=== PATIENT | female | born 1950 | race Caucasian/White ===

== ENCOUNTER → 2019-10-05 | Outpatient (CLI) | payer BC, MEDICARE, OTHER | END | disposition home or self-care (01) | LOC: RAD 11:34 | DX: S82.891D Other fracture of right lower leg, subsequent encounter for closed fracture with routine healing (principal); X58.XXXD Exposure to other specified factors, subsequent encounter ==

== ENCOUNTER 2019-11-25 13:32 | Emergency (ER) | payer BC, MEDICARE, OTHER ==
[~2019-11-25] VITALS: Ht 152.4 cm; Wt 56.7 kg
[2019-11-25] MEDS ORDERED: CLEOCIN HCL150 MG PO (15:07)
== END 2019-11-25 15:30 | disposition left against medical advice (07) ==
LOC: ED 13:32
DX: K04.7 Periapical abscess without sinus (principal); Z88.8 Allergy status to other drugs, medicaments and biological substances

== ENCOUNTER 2021-12-24 12:02 | Emergency (ER) | payer OTHER, MEDICARE ==
[~2021-12-24] VITALS: Ht 152.4 cm; Wt 59.0 kg
[~2021-12-24 12:02] MED LIST: CLEOCIN HCL150 MG PO
[2021-12-24 13:14] LABS: BASO % 0.2 % (0.0-1.0); EOS % 0.2 % (1.0-4.0); HEMATOCRIT 35.6 % (37.0-47.0); LYMPH % 7.5 % (27.0-41.0); MEAN CELL VOLUME 90.8 fl (81.0-99.0); MEAN CORPUSCULAR HGB 29.8 pg (27.0-31.0); MEAN CORPUSCULAR HGB CONC 32.9 g/dl (33.0-37.0); MEAN PLATELET VOLUME 9.4 fl (9.6-12.3); MONO # 0.7 10*3/uL (0.1-1.0); MONO % 5.2 % (3.0-9.0); NEUT # 11.4 10*3/uL (2.3-7.9); NEUT % 86.6 % (47.0-73.0); PLATELET COUNT AUTOMATED 244 10*3/uL (130-400); RED BLOOD COUNT 3.92 10*6/uL (4.10-5.10); RED CELL DISTRI WIDTH 13.6 % (0-14.5); WHITE BLOOD COUNT 13.2 10*3/uL (4.8-10.8)
[2021-12-24 13:24] LABS: ACT PARTIAL THROMBO TIME 22.3 SECONDS (20.0-32.1)
[2021-12-24 13:29] LABS: CREATININE 1.11 mg/dL (0.55-1.02); POTASSIUM 4.5 mmol/L (3.5-5.1); TOTAL PROTEIN 6.8 gm/dL (6.4-8.2)
[2021-12-25] MEDS ORDERED: AMOXICILLIN875 MG PO (09:30)
== END 2021-12-24 15:43 | disposition home or self-care (01) ==
LOC: ED 12:02
PROVIDERS: Emergency Medicine
DX: R09.81 Nasal congestion (principal); R05.9 Cough, unspecified; R06.2 Wheezing; Z88.6 Allergy status to analgesic agent; Z91.040 Latex allergy status; Z91.048 Other nonmedicinal substance allergy status; Z79.2 Long term (current) use of antibiotics

== ENCOUNTER 2025-07-10 07:13 | Emergency (ER) | payer BC, MEDICARE ==
[~2025-07-10 07:13] MED LIST changes: +AMOXICILLIN875 MG PO
[2025-07-10] MEDS ORDERED: METHOCARBAMOL750 M1 PO (08:42)
== END 2025-07-10 09:08 | disposition home or self-care (01) ==
LOC: ED 07:13
DX: S70.01XA Contusion of right hip, initial encounter (principal); I10 Essential (primary) hypertension; F41.9 Anxiety disorder, unspecified; Z88.6 Allergy status to analgesic agent; Z91.040 Latex allergy status; Z91.010 Allergy to peanuts; W01.0XXA Fall on same level from slipping, tripping and stumbling without subsequent striking against object, initial encounter; Y93.89 Activity, other specified; Y92.89 Other specified places as the place of occurrence of the external cause; Y99.8 Other external cause status